=== PATIENT | female | born 1985 | race Caucasian/White ===

== ENCOUNTER 2017-05-11 08:56 | Emergency (ER) | payer MEDICAID ==
[~2017-05-11] VITALS: Ht 167.6 cm; Wt 79.8 kg
[~2017-05-11 08:56] MED LIST: DCS100C PO; IBP800T PO; MAGN400C PO; METO5TAB2 GT; OCP; OCP PO; OXYC-272 PO; OXYC1TAB12 PO; PREN1TAB25 PO; PSEU120T53 PO; RANI150C11 PO
--- NOTE | 2017-05-11 09:37 | Diagnostic Imaging Report ---
INDICATION: Toe pain and swelling COMPARISON: None FINDINGS: 3 views of the left foot demonstrate nondisplaced fracture of the distal aspect proximal phalanx first digit. There is intra-articular involvement. There is no foreign body. IMPRESSION: Proximal phalanx fracture of the first digit. Dictated by: Dictated on workstation # [id number]
--- NOTE | 2017-05-11 10:05 | ED Lower Extremity ---
General Chief Complaint: Lower Extremity Stated Complaint: L BIG TOE INJ Nursing Triage Note: ADM TO ED WITH L FOOT PAIN. REORTS THAT SHE HIT FOOT ON COUCH. ON FRIDAY WAS SEEN A [facility] YESTERDAY. HAD X RAY AND WAS GIVEN HYDROCODONE 7.5 ARE NOT HELPING. AND THAT SHE CAN'T SEEN ORTHO FOR A WEEK OR MORE. EXPLAINED THAT [facility] WOULD NOT SEE [facility] TODAY. Nursing Sepsis Screen: No Definite Risk Source: patient Exam Limitations: no limitations History of Present Illness Time seen by provider: 09:03 Initial Comments This 32-year-old woman presents to the emergency room with complaints of intense pain in the left great toe after stubbing it on a couch yesterday. She had the toe x-rayed at [facility] and a fracture was identified. She was prescribed hydrocodone 7.5 mg which she reports is not reducing the pain. She cannot tolerate having ice on the injury. She would like further assessment and treatment of pain. Allergies and Home Medications Allergies Coded Allergies: No Known Drug Allergies (Verified , 02/20/15) Home Medications Docusate Sodium 100 Mg Cap, 100 MG PO BID, #60 Prescribed by: RIAN RODRIGUEZ on 02/22/15 0811 Ibuprofen 800 Mg Tab, 800 MG PO Q6H, #60 Prescribed by: RIAN RODRIGUEZ on 02/22/15 0811 Metoclopramide Hcl 5 Mg Tab, 10 MG GT BID, #14 Prescribed by: RIAN RODRIGUEZ on 02/22/15 0811 Oxycodone HCl/Acetaminophen 1 Each Tablet, 1-2 EACH PO Q4H, #20 Prescribed by: RAJANI BRYSON on 05/11/17 1012 Oxycodone Hcl/Acetaminophen 1 Tab Tablet, 1-2 TAB PO Q4H PRN for PAIN, #60 Prescribed by: RIAN RODRIGUEZ on 02/22/15 0811 Vit#96/Ferrous Fum/Fa 1 Each Tablet, 1 EACH PO DAILY, (Reported) Ranitidine Hcl 150 Mg Capsule, 150 MG PO BID, (Reported) Constitutional: no symptoms reported EENTM: no symptoms reported Respiratory: no symptoms reported Cardiovascular: no symptoms reported Gastrointestinal: no symptoms reported Genitourinary: no symptoms reported Musculoskeletal: see HPI Skin: other (Ecchymosis) Psychiatric/Neurological: No Symptoms Reported Past Blqdrub-Poeqmi-Tgxzph Hx Patient Social History Recent Foreign Travel: No Contact w/Someone Who Travel: No Recent Infectious Disease Expo: No Immunizations Up To Date Tetanus Booster (TDap): More than 5yrs Surgeries History of Surgeries: Yes (d & c, c/s x2) Respiratory History of Respiratory Disorde: No Cardiovascular History of Cardiac Disorders: No Neurological History of Neurological Disord: No Reproductive System Hx Reproductive Disorders: No Sexually Transmitted Disease: No Gastrointestinal History of Gastrointestinal Di: No Musculoskeletal History of Musculoskeletal Dis: No Endocrine History of Endocrine Disorders: No Cancer History of Cancer: No Psychosocial History of Psychiatric Problem: No Integumentary History of Skin or Integumenta: No Blood Transfusions History of Blood Disorders: No Adverse Reaction to a Blood Tr: No Family Medical History Family Medial History: Patient reports no known family medical history. Physical Exam Vital Signs Vital Sign - Last 12Hours 05/11/17 05/11/17 09:02 10:23 Temp 98.3 Pulse 91 Resp 18 B/P (MAP) 93/ Pulse Ox 98 O2 Flow Rate 153.00 Capillary Refill : Less Than 3 Seconds General Appearance: WD/WN, mild distress Knees: bilateral knee non-tender, bilateral knee normal inspection, bilateral knee normal range of motion, bilateral knee no evidence of injury Ankles: bilateral ankle non-tender, bilateral ankle normal inspection, bilateral ankle normal range of motion, bilateral ankle no evidence of injury Feet: right foot non-tender, right foot normal inspection, right foot normal range of motion, right foot no evidence of injury, left foot other (Markedly swollen and ecchymotic left great toe. Tenderness, swelling, and ecchymosis extends over the distal first metatarsal. 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 See report below: NAME: [facility] REC#: [id number] PT STATUS: DEP ER : 1985 PHYSICIAN: RAJANI RODRIGUEZ MD ADMIT DATE: 05/11/17/ER Signed Date of Exam: 05/11/17 FOOT, LEFT, 3 VIEWS INDICATION: Toe pain and swelling COMPARISON: None FINDINGS: 3 views of the left foot demonstrate nondisplaced fracture of the distal aspect proximal phalanx first digit. There is intra-articular involvement. There is no foreign body. IMPRESSION: Proximal phalanx fracture of the first digit. Dictated by: Dictated on workstation # [id number] Dict: 05/11/17 0928 Trans: 05/11/17 1208 Interpreted by: ZARA RAMIREZ Departure Impression Impression: Primary Impression: Fracture of left great toe Qualified Codes: S92.415A - Nondisplaced fracture of proximal phalanx of left great toe, initial encounter for closed fracture Disposition: HOME, SELF-CARE Condition: Improved Departure-Patient Inst. Decision time for Depature: 10:00 Referrals: [facility] (PCP) Primary Care Physician KASH NEWMAN APRN (Family) Primary Care Physician Patient Instructions: Toe Fracture (DC) Add. Discharge Instructions: Use the postop shoe to protect and support your toe. Avoid weightbearing on the toes is much as possible. Use Percocet as prescribed for severe pain. For more mild pain use the hydrocodone previously prescribed. Rest, elevation, and icing should help with pain and swelling. Follow-up with an orthopedic provider such as Nahum Johnson next week. Return to care if symptoms worsen. Use crutches as needed. You may wish to use a stool softener such as Colace once or twice daily while on narcotic pain medications. Do not drive or operate machinery while on narcotics. All discharge instructions reviewed with patient and/or family. Voiced understanding. Scripts Oxycodone HCl/Acetaminophen (Percocet 5-325 mg Tablet) 1 Each Tablet 1-2 EACH PO Q4H, #20 TAB Prov: RAJANI RODRIGUEZ MD 05/11/17 RAJANI RODRIGUEZ MD May 11, 2017 10:05
[2017-05-11] MEDS ORDERED: OXYC-197 PO (10:12)
[2017-05-11 10:23] VITALS: BP 153/93
== END 2017-05-11 10:24 | disposition home or self-care (01) ==
LOC: EDUNIT# 08:56 → ER 08:57
DX: S92.412A Displaced fracture of proximal phalanx of left great toe, initial encounter for closed fracture (principal); W22.03XA Walked into furniture, initial encounter
CPT/HCPCS: 73630; 99283